=== PATIENT | female | born 1965 | race Caucasian/White ===

== ENCOUNTER 2018-06-07 22:41 | Emergency (ER) | payer MEDICAID ==
[~2018-06-07] VITALS: Ht 160 cm; Wt 77.1 kg
[2018-06-08 01:05] VITALS: BP 130/78
== END 2018-06-08 01:06 | disposition home or self-care (01) ==
LOC: ER 22:47
DX: K11.5 Sialolithiasis (principal)
CPT/HCPCS: A4606; Z7610